=== PATIENT | male | born 1965 | race Caucasian/White ===

== ENCOUNTER → 2017-02-17 | Outpatient (CLI) | payer MEDICAID ==
[~2017-02-17] VITALS: Ht 177.8 cm; Wt 123.3 kg
[~2017-02-17] MED LIST: ALBU8.5H IH; BECL8.7A5 IH; GABA-531 PO; IBUP-2070 PO; OMEP20 PO
[2017-02-17 13:55] VITALS: BP 136/68
== END | disposition home or self-care (01) ==
LOC: HBOWC 12:46
PROVIDERS: ATTEND Emergency Medicine
DX: L98.491 Non-pressure chronic ulcer of skin of other sites limited to breakdown of skin (principal); E66.01 Morbid (severe) obesity due to excess calories

== ENCOUNTER → 2018-04-16 | Outpatient (CLI) | payer MEDICAID ==
[~2018-04-16] VITALS: Ht 177.8 cm; Wt 139.0 kg
[~2018-04-16] MED LIST changes: -ALBU8.5H IH; +ALBU8.5H8 IH; -BECL8.7A5 IH; +FLUT16H NASAL; -IBUP-2070 PO
[2018-04-16 10:27] VITALS: BP 130/81
== END | disposition home or self-care (01) ==
LOC: HBOWC 09:03
PROVIDERS: ATTEND Nurse Practitioner Adult Health
DX: T81.89XD Other complications of procedures, not elsewhere classified, subsequent encounter (principal); E66.01 Morbid (severe) obesity due to excess calories; G89.29 Other chronic pain; M54.9 Dorsalgia, unspecified; Y83.8 Other surgical procedures as the cause of abnormal reaction of the patient, or of later complication, without mention of misadventure at the time of the procedure